=== PATIENT | female | born 1970 | race Caucasian/White ===

== ENCOUNTER 2020-10-04 20:18 | Emergency (ER) | payer BC, OTHER ==
[~2020-10-04] VITALS: Ht 175.3 cm; Wt 57.6 kg
[~2020-10-04 20:18] MED LIST: ESCI5TAB PO
--- NOTE | 2020-10-04 20:35 | NUR ---
PT AAOX4. BIBSELF C/O L ANKLE PAIN AND SWELLING S/P FALL AND TWISTED HER ANKLE. PT PLACED IN BED 11 ON MONITOR AND PULSE OX. VSS. NO ACUTE DISTRESS NOTED.
[2020-10-04] MEDS ORDERED: IBUPROFEN 600 MG TABLET ONE (20:46)
--- NOTE | 2020-10-04 20:50 | NUR ---
ICE PACK PLACED ON L FOOT. PT MEDICATED. VSS.
--- NOTE | 2020-10-04 20:51 | NUR ---
RADIOLOGY AT BEDSIDE
[2020-10-04] MEDS ORDERED: IBUPROFEN 600 MG TABLET PO ONE (21:00)
--- NOTE | 2020-10-04 21:32 | NUR ---
EMT AT BEDSIDE FOR WINSTON WRAP
--- NOTE | 2020-10-04 21:32 | NUR ---
Patient discharged to home in stable condition. Written and verbal after care instructions given. Patient verbalizes understanding of instruction. PT ambulated out of ED using crutches. VSS.
[2020-10-04 21:41] VITALS: BP 128/72
== END 2020-10-04 21:42 | disposition home or self-care (01) ==
LOC: ER 20:22
DX: S93.492A Sprain of other ligament of left ankle, initial encounter (principal); S60.812A Abrasion of left wrist, initial encounter; G43.909 Migraine, unspecified, not intractable, without status migrainosus; Z88.0 Allergy status to penicillin; Z88.1 Allergy status to other antibiotic agents; Z79.899 Other long term (current) drug therapy; W01.0XXA Fall on same level from slipping, tripping and stumbling without subsequent striking against object, initial encounter; Y93.89 Activity, other specified; Y92.89 Other specified places as the place of occurrence of the external cause; Y99.8 Other external cause status
CPT/HCPCS: 73590-TC; 73610-TC

== ENCOUNTER 2021-12-05 10:50 | Emergency (ER) | payer BC ==
[~2021-12-05] VITALS: Ht 175.3 cm; Wt 59.0 kg
--- NOTE | 2021-12-05 11:00 | NUR ---
PT TO ER BED 11 C/O MID TO L SIDED CHEST PAIN, INTERMITTENT THAT STARTED LAST NIGHT AT 2300. PT GOWNED AND PLACED ON MONITOR. STABLE VITALS. NAD NOTED AWAITING MD MONIQUE.
--- NOTE | 2021-12-05 11:02 | NUR ---
DR AGUILAR AT BEDSIDE FOR EVAL.
[2021-12-05] MEDS ORDERED: NITROGLYCERIN 0.4 MG/TAB BOTTLE ONE (11:36)
[2021-12-05] MEDS ORDERED: ASPIRIN 325 MG TABLET ONE (11:36)
[2021-12-05] MEDS: ASPIRIN 325 MG TABLET PO ONE (11:42)
--- NOTE | 2021-12-05 11:45 | NUR ---
IV LINE STARTED BLOOD DRAWN AND SENT TO LAB.
[2021-12-05 12:14] VITALS: BP 115/77
[2021-12-05] MEDS: NITROGLYCERIN 0.4 MG/TAB BOTTLE SL ONE (12:14)
[2021-12-05 12:26] LABS: BASOPHILS % (AUTO) 1.2 % (0.0-2.0); EOSINOPHILS % (AUTO) 1.9 % (0.0-6.0); HEMATOCRIT 32 % (33-45); HEMOGLOBIN 10.4 g/dL (11.5-14.8); LYMPHOCYTES # (AUTO) 0.9 K/uL (0.8-4.8); LYMPHOCYTES % (AUTO) 31.4 % (20.0-44.0); MEAN CORPUSCULAR HGB CONC 32 g/dl (31.0-36.0); MEAN CORPUSCULAR VOLUME 83 fL (82-100); MONOCYTES # (AUTO) 0.3 K/uL (0.1-1.30); MONOCYTES % (AUTO) 10.5 % (2.0-12.0); NEUTROPHILS # (AUTO) 1.5 K/uL (1.8-8.9); PLATELET COUNT (AUTO) 188 K/uL (150-450); WHITE BLOOD COUNT (AUTO) 2.8 K/uL (4.3-11.0)
[2021-12-05 12:59] LABS: CARBON DIOXIDE 29 mmol/L (21-32); CHLORIDE 107 mmol/L (98-107); CREATININE 0.7 mg/dL (0.6-1.3); GLUCOSE 81 mg/dL (74-106); POTASSIUM 4.1 mmol/L (3.5-5.1); SODIUM SERUM 140 mmol/L (136-145); UREA NITROGEN, BLOOD 10 mg/dL (7-18)
[2021-12-05] MEDS ORDERED: AZIT250T13 PO (13:15)
--- NOTE | 2021-12-05 13:28 | NUR ---
IV removed. Catheter intact and site benign. Pressure and 4x4 applied to site. No bleeding noted.Patient discharged to home in stable condition. Written and verbal after care instructions given. Patient verbalizes understanding of instruction.
== END 2021-12-05 13:29 | disposition home or self-care (01) ==
LOC: ER 10:54
DX: J18.9 Pneumonia, unspecified organism (principal); R07.89 Other chest pain; Z88.0 Allergy status to penicillin; Z88.1 Allergy status to other antibiotic agents
CPT/HCPCS: 36415; 71045-TC; 80048-TC; 83880; 84484-TC; 85025-TC; 85378-TC